=== PATIENT | male | born 1950 | race Caucasian/White ===

== ENCOUNTER → 2018-05-28 14:11 | Outpatient (CLI) | payer SELFPAY ==
--- NOTE | 2018-05-28 14:16 | CT_ITS ---
STUDY: CT SOFT TISSUE NECK WITHOUT CONTRAST REASON FOR EXAM: Male, 68 years old. Neck mass. RADIATION DOSAGE (If Supplied By Facility): CTDIvol = ( 24.85 ) mGy, DLP = ( 682.56 ) mGycm TECHNIQUE: The patient was scanned in a multi-detector CT scanner. High resolution transaxial imaging was performed without the administration of intravenous contrast material. Sagittal and coronal images were reconstructed. Individualized dose optimization techniques were used for this CT. COMPARISON: None. FINDINGS: Normal bilateral parotid glands. Normal bilateral steward/stewardess night spaces. Normal bilateral parapharyngeal spaces. Normal bilateral carotid spaces. There are atherosclerotic calcifications Normal bilateral sublingual and submandibular glands and spaces. Normal visualized nasopharynx. Normal retropharyngeal space. Normal perivertebral space. Normal visualized bilateral faucial tonsils. The visualized tongue, tongue base and oropharynx are normal. The visualized cervical lymph nodes (levels I-) are within normal size limits, and maintain normal morphology. There is no demonstrated solid or cystic mass lesion. Normal epiglottis, bilateral vallecula and hypopharynx. The pre-epiglottic and paraglottic adipose spaces are normal. Normal visualized bilateral piriform sinuses, aryepiglottic folds, vocal cords, and arytenoid-cricoid articulations. Normal subglottic trachea. There is 8.0 x 5.3 cm left neck solid mass with peripheral calcifications centered at the left lobe of the thyroid gland, displacing the trachea toward the right in the lower neck and upper thorax. Normal visualized pulmonary apices. Normal visualized paranasal sinuses. There is multilevel degenerative changes of the cervical spine. CT/Soft Tissue Neck without Contr IMPRESSION: Left thyroid mass. Electronically Signed: Davidson Carpenter MD at 14:22 EDT , Service support ,
== END ==
PROVIDERS: Family Provider Family Medicine; PCP Family Medicine; Referring Provider Internal Medicine Pulmonary Disease; Visit Provider Internal Medicine Pulmonary Disease
DX: R22.1 Localized swelling, mass and lump, neck (principal)
CPT/HCPCS: 70490

== ENCOUNTER → 2023-12-31 | Outpatient (CLI) | payer SELFPAY ==
--- NOTE | 2023-12-31 14:00 | ECHOCS_ITS ---
Reason For Study: PULMONARY HYPERTENSION Procedure This was a 2D Doppler, Color Flow transthoracic echocardiogram. The study was technically difficult. The study was technically limited. Contrast injection was performed. Exam performed in department. 2 airline ticket agent attempt. Left Ventricle Normal LV size. Mild to moderate LV concentric hypertrophy. The left ventricular ejection fraction is 65 %. Right Ventricle The right ventricle appears severely dilated with severe RV systolic dysfunction. Atria There is moderate biatrial dilatation. Mitral Valve Mitral valve not well visualized. Tricuspid Valve The tricuspid valve is not well visualized. Aortic Valve The aortic valve is not well visualized. Aortic valve not well-visualized. Mildly elevated mean peak gradient at 10 mmHg. Pulmonic Valve The pulmonic valve is not well visualized. Great Vessels Mildly dilated aortic root. Pericardium/Pleural No pericardial effusion. Medication 22 gauge I.V. with prn adaptor inserted into left arm. Diluted definity 3.5ml given slow IV push to enhance endocardial definition. MMode/2D Measurements & Calculations LVIDd: 3.9 cm IVSd: 1.9 cm LVOT diam: 2.0 cm LVIDs: 2.4 cm LVPWd: 1.5 cm RVDd: 3.2 cm FS: 38.0 % LVOT area: 3.1 cm2 asc Aorta Diam: 4.0 cm LAV(MOD-bp): 59.8 ml Ao sinus diam: 3.2 cm LAV(MOD-bp) Indexed: 23.4 ml/m2 LAV(MOD-sp2): 62.1 ml LAV(MOD-sp4): 56.[address] Junction: 2.9 cm LA dimension(2D): 4.1 cm LA A4 area: 20.2 cm2 RA A4 area: 18.1 cm2 Time Measurements MV dec time: 0.52 sec Doppler Measurements & Calculations MV E max jim: 93.6 cm/sec Lat Peak E' Jim: 8.5 cm/sec Med Peak E' Jim: 7.8 cm/sec E/E' lat: 11.0 E/E' med: 12.0 MV V2 max: 141.9 cm/sec Ao V2 max: 196.2 cm/sec LV V1 max: 92.6 cm/sec MV max P.1 mmHg Ao max P.4 mmHg LV V1 max P.4 mmHg MV V2 mean: 92.5 cm/sec Ao V2 mean: 155.7 cm/sec LV V1 mean P.9 mmHg MV mean P.6 mmHg Ao mean P.2 mmHg LV V1 mean: 65.7 cm/sec MV V2 VTI: 35.1 cm Ao V2 VTI: 36.9 cm LV V1 VTI: 18.0 cm AV (velocity ratio): 0.49 MVA(VTI): 1.6 cm2 KELLY(I,D): 1.5 cm2 KELLY(V,D): 1.4 cm2 SV(LVOT): 55.1 ml PA V2 max: 100.2 cm/sec PA max PG (full): 1.8 mmHg ECHO/Echo Complete W/ Contrast Interpretation Summary The study was technically difficult with suboptimal images. Mild to moderate LV concentric hypertrophy. The left ventricular ejection fraction is 65 %. The right ventricle appears severely dilated with severe RV systolic dysfunctio n. There is moderate biatrial dilatation. Aortic valve not well-visualized. Mildly elevated mean peak gradient at 10 mmHg . Mildly dilated aortic root. Ordering Physician: Morena Varma Referring Physician: Morena Varma MD Performed By: Alyson Tran RDCS
== END | disposition home or self-care (01) ==
LOC: CVS 13:59
PROVIDERS: PCP Physician Assistant; Referring Provider Internal Medicine Cardiovascular Disease; Visit Provider Internal Medicine Cardiovascular Disease
DX: I27.20 Pulmonary hypertension, unspecified (principal); I10 Essential (primary) hypertension; R06.00 Dyspnea, unspecified
CPT/HCPCS: 93306; Q9957; A4216; C8929